=== PATIENT | female | born 1970 | race Caucasian/White ===

== ENCOUNTER 2016-11-18 07:49 | Day surgery (SDC) | payer OTHER ==
[~2016-11-18] VITALS: Ht 180.3 cm; Wt 66.7 kg
[~2016-11-18 07:49] MED LIST: 0.9% Sodium Chloride 1,000 ML IV SCH; ACET325T51 PO; AMT25T PO; BUSP10TA2 PO; FLUO20CA25 PO; FURO-129 PO; LISI-571 PO; OMEP40CA36 PO; Sodium Chloride LOK Flush 10 mL Syringe IV PRN; [UNRECOGNIZED DRUG - CODE] IM; fentaNYL-PF 50 mCg/mL 2 mL Inj IVPUSH PRN
[2016-11-18 08:08] VITALS: BP 137/99; RESP 14; O2SAT 99
[2016-11-18 08:45] VITALS: BP 120/82; PULSE 71; RESP 16; O2SAT 98
[2016-11-18 09:02] VITALS: BP 120/79; PULSE 69; RESP 16; O2SAT 99
[2016-11-18 09:11] VITALS: BP 117/74; PULSE 77; RESP 16; O2SAT 99
--- NOTE | 2016-11-18 18:39 | ENDO ---
[address] [address] ENDOSCOPY PROCEDURE PATIENT: NACHO GALLAGHER : 1970 MR#: [id number] ADMIT: 11/18/2016 JOB ID: [id number] DATE: 11/18/2016 PROCEDURE: Esophagogastroduodenoscopy. INDICATION: Early satiety. The patient's ASA classification is I. Mallampati score is II. MEDICATIONS: Versed at 4 mg, fentanyl 100 mcg. INSTRUMENT USED: [id number]. PROCEDURE DETAILS: After informed consent was obtained, the patient was brought to the GI suite, where she was placed on oxygen via nasal cannula and monitored with continuous pulse oximeter, telemetry, and blood pressure monitoring. A time-out was performed. Then, she was placed in a left lateral decubitus position and medications were administered for sedation. A bite block was placed. The standard EGD scope was inserted through the bite block and advanced under direct visualization to the second portion of the duodenum without difficulty. FINDINGS: 1. Normal-appearing duodenal bulb, first and second portion. Multiple random biopsies were obtained. 2. Normal-appearing pylorus. 3. In the antrum, there was mild erythema suggestive of gastritis. Multiple random biopsies were obtained throughout the antrum and body of the stomach. 4. Retroflexed views in the gastric body revealed a normal-appearing cardia and fundus. 5. The GE junction was regular at 44 cm. 6. Normal-appearing esophagus. 7. Minimal amount of food debris was seen in the gastric body. IMPRESSION: 1. Gastritis in the antrum. 2. Minimal amount of food debris in the gastric body suggestive of gastroparesis. RECOMMENDATIONS: 1. Will order gastric emptying study. 2. Recommend small frequent meals. COMPLICATIONS: None. ESTIMATED BLOOD LOSS: Less than 5 mL. MTDD
[2016-11-18] MEDS ORDERED: PROM25TA14 PO (20:03)
== END 2016-11-18 23:59 | disposition home or self-care (01) ==
LOC: END 07:49
PROVIDERS: ATTEND Internal Medicine Gastroenterology
DX: K29.50 Unspecified chronic gastritis without bleeding (principal); R68.81 Early satiety; R11.2 Nausea with vomiting, unspecified; K59.09 Other constipation; K62.5 Hemorrhage of anus and rectum; M79.7 Fibromyalgia; R63.4 Abnormal weight loss; Z68.20 Body mass index [BMI] 20.0-20.9, adult; Z79.1 Long term (current) use of non-steroidal anti-inflammatories (NSAID); Z83.71 Family history of colonic polyps; Z80.0 Family history of malignant neoplasm of digestive organs
CPT/HCPCS: 43239; 88305; 88342; G0500; J2250; J3010; J7030

== ENCOUNTER 2016-11-18 14:42 | Emergency (ER) | payer OTHER ==
[~2016-11-18] VITALS: Ht 180.3 cm; Wt 66.8 kg
[~2016-11-18 14:42] MED LIST changes: -0.9% Sodium Chloride 1,000 ML IV SCH; -Sodium Chloride LOK Flush 10 mL Syringe IV PRN; -fentaNYL-PF 50 mCg/mL 2 mL Inj IVPUSH PRN
[2016-11-18 15:04] VITALS: BP 161/93; PULSE 91; RESP 16; O2SAT 100
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
--- NOTE | 2016-11-18 16:44 | DRSVH ---
PROCEDURE: X-RAY CHEST ONE VIEW, PORTABLE ([id number]) INDICATIONS: chest pain TECHNIQUE: One view of the chest was acquired. COMPARISON: The 05/10/2015 FINDINGS: Surgical changes and devices: None. Lungs and pleura: No pleural effusions or pneumothorax. Lungs are clear. Mediastinum: Mediastinal contours appear normal. Heart size is normal. Bones and chest wall: No suspicious bony lesions. Overlying soft tissues appear unremarkable. IMPRESSION: No acute cardiopulmonary abnormality. No source of chest pain seen. Dictated by: Chin Ramírez M.D. on 11/18/2016 at 16:41 Approved by: Chin Ramírez M.D. on 11/18/2016 at 16:42
[2016-11-18] MEDS ORDERED: Ondansetron 2 mg/mL 2 mL Inj IVPUSH ONE (17:05)
[2016-11-18] MEDS: HYDROmorphone 0.5 mg/0.5 mL iSecure Syringe IVPUSH PRN ×2 (17:12→17:40)
[2016-11-18 17:14] VITALS: BP 147/98; PULSE 87; RESP 18; O2SAT 96
[2016-11-18 17:19] LABS: BASOPHILS % (AUTO) 0.4 % (0-3); EOSINOPHILS % (AUTO) 0.4 % (0-5); MONOCYTES % (AUTO) 8.4 % (4-12); Mean Corpuscular Hemoglobin 30.5 pg (27.0-35.0); Mean Corpuscular Volume 90.5 fL (81-100); NEUTROPHILS % (AUTO) 69.8 % (40-74); Platelet Count 240 bil/L (150-400)
[2016-11-18 17:49] LABS: TROPONIN T < 0.010 ug/L (0.0-0.011)
[2016-11-18] MEDS ORDERED: LidocaineVisc 2%:Antacid 1:1 10 mL Syringe PO ONE (18:10)
[2016-11-18] MEDS ORDERED: Promethazine Inj 25 MG in Dextrose 5%-Pha MIX 50 ML IV ONE (19:05)
[2016-11-18] MEDS ORDERED: PROM25TA14 PO (20:03)
[2016-11-18 20:20] VITALS: BP 150/92; PULSE 83; RESP 16; O2SAT 97
[2016-11-18 20:42] VITALS: BP 150/91; PULSE 85; RESP 15; O2SAT 96
== END 2016-11-18 20:42 | disposition home or self-care (01) ==
LOC: SED 14:42
DX: R07.89 Other chest pain (principal); I10 Essential (primary) hypertension; F41.9 Anxiety disorder, unspecified; G43.909 Migraine, unspecified, not intractable, without status migrainosus; Z88.2 Allergy status to sulfonamides; Z88.5 Allergy status to narcotic agent
CPT/HCPCS: 36415; 71010; 80053; 83735; 84484; 85025; 85378; 93005; 96374; 96375; 99285; J1170; J2405; J2550